=== PATIENT | male | born 1970 | race Caucasian/White ===

== ENCOUNTER 2017-06-14 06:27 | Observation (INO) | payer BC ==
[2017-06-14] MEDS ORDERED: LR 1,000 ML IV ONE (07:15)
[2017-06-14] MEDS ORDERED: BACITRACIN ZINC 14.2 GM OINTTUBE TP ONE (07:19)
[2017-06-14] MEDS ORDERED: LIDO/EPI 1% **for epidural** 30 ML SDV ONE (07:19)
[2017-06-14] MEDS ORDERED: MIDAZOLAM 2 MG/2 ML VIAL IVP ONE (07:24)
--- NOTE | 2017-06-14 07:27 | PDANEPAE ---
ANE History of Present Illness right parotid gland tumor ANE Past Medical History - Cardiovascular History Hx Hypertension: No Hx Arrhythmias: No Hx Chest Pain: No Hx Coronary Artery / Peripheral Vascular Disease: No Hx CHF / Valvular Disease: No Hx Palpitations: No - Pulmonary History Hx COPD: No Hx Asthma/Reactive Airway Disease: No Hx Recent Upper Respiratory Infection: No Hx Oxygen in Use at Home: No Hx Sleep Apnea: No Sleep Apnea Screening Result - Last Documented: Negative - Neurologic History Hx Cerebrovascular Accident: No Hx Seizures: No Hx Dementia: No - Endocrine History Hx Diabetes: No Hypothyroid: No Hyperthyroid: No Obesity: no - Renal History Hx Renal Disorders: No - Liver History Hx Hepatic Disorders: No - Neurological & Psychiatric Hx Hx Neurological and Psychiatric Disorders: No - Cancer History Hx Cancer: No - Congenital Disorder History Hx Congenital Disorders: No - GI History GERD: no Hx Gastrointestinal Disorders: No - Other Health History Other Health History: none - Chronic Pain History Chronic Pain: No - Surgical History Prior Surgeries: left acl surgery. right shoulder reconstruction. myriam ANE Review of Systems Review of systems is: negative Review of Systems: - Exercise capacity METS (RN): 4 METS ANE Patient History - Allergies Allergies/Adverse Reactions: No Known Allergies Allergy (Verified 06/14/17 07:18) - Home Medications Home medications: home medication list seen and reviewed Home Medications: Fluticasone Nasal [Flonase Nasal Dolphin (RX)] 1 sprays NASAL DAILY 05/24/17 [ Last Taken 06/13/17] - Anes Hx Anes Hx: post operative nausea and vomiting - Smoking Hx Smoking Status: Former smoker - Family Anes Hx Family Hx Anesthesia Complications: none ANE Labs/Vital Signs - Vital Signs Blood Pressure: 113/75 Heart Rate: 59 Respiratory Rate: 16 O2 Sat (%): 96 Height: 190.5 cm Weight: 85 kg ANE Physical Exam - Airway Neck exam: FROM Mallampati Score: Class 1 Mouth exam: normal dental/mouth exam - Pulmonary Pulmonary: no respiratory distress - Cardiovascular Cardiovascular: regular rate and rhythym - ASA Status ASA Status: I ANE Anesthesia Plan Anesthesia Plan: general endotracheal anesthesia Specialized Airway: video laryngoscope
[2017-06-14] MEDS ORDERED: SCOPOLAMINE HYDROBROMIDE 1 MG/3 DAYS PATCH TD SCH (07:30)
[2017-06-14] MEDS ORDERED: fentaNYL 100 MCG/2 ML INJ ONE ×2 (07:33)
[2017-06-14] MEDS ORDERED: REMIFENTANIL HCL 1 MG VIAL ONE (07:33)
[2017-06-14] MEDS ORDERED: PROPOFOL/EMULSION 500 MG/50 ML BOTTLE IV ONE (07:33)
[2017-06-14] MEDS ORDERED: PROPOFOL 200 MG/20 ML VIAL ONE ×2 (07:33→10:19)
[2017-06-14] MEDS ORDERED: LIDOCAINE 2% 5 ML SDV ONE (07:38)
[2017-06-14] MEDS ORDERED: ROCURONIUM 50 MG/5 ML VIAL ONE (07:39)
[2017-06-14] MEDS ORDERED: DEXAMETHASONE 4 MG/ML VIAL ONE ×2 (07:42→09:26)
[2017-06-14] MEDS ORDERED: ONDANSETRON 4 MG/2 ML VIAL ONE (07:43)
[2017-06-14] MEDS ORDERED: SUGAMMADEX SODIUM 200 MG/2 ML VIAL IVP ONE ×2 (07:43→08:43)
[2017-06-14] MEDS ORDERED: ceFAZolin 2 GM/SWFI 2 GM/20 ML SYR IVP ONE (07:51)
--- NOTE | 2017-06-14 07:51 | PDHPUP ---
History & Physical Update H&P update statement: This history and physical update is based on an assessment of the patient which was completed after admission or registration (within 24 hours), but prior to the surgery/procedure.
[2017-06-14] MEDS ORDERED: ceFAZolin 1 GM VIAL ONE ×2 (08:19)
[2017-06-14] MEDS ORDERED: LIDO/EPI 1% **Not for Epidural 20 ML MDV NB ONE (09:45)
[2017-06-14] MEDS ORDERED: fentaNYL 100 MCG/2 ML INJ IVP PRN (10:22)
[2017-06-14] MEDS ORDERED: ONDANSETRON 4 MG/2 ML VIAL IVP PRN (10:22)
[2017-06-14] MEDS ORDERED: ACETAMINOPHEN 500 MG TAB PO PRN (10:22)
[2017-06-14] MEDS ORDERED: HYDROCODONE/APAP 5/325 TAB PO PRN (10:22)
[2017-06-14] MEDS ORDERED: HYDROmorphONE/DILAUDID 1 MG/ML INJ IVP PRN (10:22)
[2017-06-14] MEDS ORDERED: PROMETHAZINE HCL 25 MG/ML INJ IVP PRN (10:22)
[2017-06-14] MEDS ORDERED: NALOXONE HCL 0.4 MG/ML INJ IVP PRN (10:22)
[2017-06-14] MEDS ORDERED: OXYCODONE/APAP 5/325 TAB PO PRN (10:22)
[2017-06-14] MEDS ORDERED: METOCLOPRAMIDE 10 MG/2 ML VIAL IVP PRN (10:22)
[2017-06-14] MEDS ORDERED: LR 500 ML IV PRN (10:22)
[2017-06-14] MEDS ORDERED: ALBUTEROL 3 ML DEYVIAL IH PRN (10:22)
--- NOTE | 2017-06-14 10:30 | POSTANESTH ---
Post Anesthetic Evaluation Cardiovascular Status: Normal, Stable Respiratory Status: Normal, Stable Level of Consciousness/Mental Status: Can Participate in Eval Pain Control: Adequate, Prn Tx Ordered Nausea/Vomiting Control: Adequate, Prn Tx Ordered Complications Possibly Related to Anesthesia: None Noted
[2017-06-14] MEDS ORDERED: KETOROLAC 30 MG/1 ML SDV ONE (10:31)
[2017-06-14] MEDS ORDERED: D5W 1/2 NS W/ 20 KCl/L 1,000 ML IV SCH (11:15)
--- NOTE | 2017-06-14 12:10 | GOP ---
[f rep st] OPERATIVE REPORT DATE OF OPERATION: 06/14/2017 SURGEON: Edmundo Frazier MD [employer] AGENT: Pj Rivera MD ANESTHESIA: General. PREOPERATIVE DIAGNOSIS: Right parotid tumor. POSTOPERATIVE DIAGNOSIS: Right parotid tumor. PROCEDURE PERFORMED: Right superficial parotidectomy with facial nerve dissection and preservation. FINDINGS: The tumor was located in the superficial lobe of the parotid gland overlying the facial ne rve pes. The facial nerve branches were preserved. All divisions stimulated at the end of the opera tion. SPECIMENS: Right parotid tumor. ESTIMATED BLOOD LOSS: Less than 50 mL. INDICATIONS: The patient is a 46-year-old man with a right parotid gland tumor. He presents for norberto gical resection. DESCRIPTION OF PROCEDURE: Patient was taken to the OR and positively identified, placed on monitors and general anesthesia was induced. The table was then turned slightly. He was prepped and draped i n the normal sterile fashion. Prior to this, I had set up the NIM monitor with 2 channels, tested it and then used it throughout the procedure to increase the degree of safety with regard to preservati on of the facial nerve. A modified Alonso incision was then marked out and infiltrated with 4 cc of 1 % lidocaine with 1:100,000 epinephrine. The skin was sharply incised. A skin flap was raised anteri nabeel. This was secured with stay sutures. I then located the sternocleidomastoid muscle along its a nterior border and dissected along the SCM fascia swinging superiorly and moving it anterior to the t ragus, keeping a wide plane of dissection. The dissection was carried down to the posterior belly of the digastric muscle. We then dissected superiorly along this and located the main branch of the fa cial nerve and dissected along the facial nerve, preserving it using the stimulator periodically as n eeded prior to cutting tissue to make sure it was not small facial nerve branches. The tumor was rot ated off the facial nerve. The facial vein was directly deep to the tumor itself. This was tied off above and below and divided. The mass was removed with some of this surrounding parotid tissue. The wound was irrigated with sterile saline. Hemostasis was achieved. I then stimulated the main branc h of the facial nerve at 0.3 setting of stimulating power and all branches moved. A 10-Turkish drain was placed through a separate stab incision, secured with a drain stitch. The wound was then closed with interrupted 4-0 Vicryl, 4-0 Monocryl, followed by 5-0 fast-absorbing gut and then 5-0 Prolene. This was followed by a pressure dressing and the case was terminated. The anesthetic discontinued. The patient tolerated the procedure well. COMPLICATIONS: None. /[id number]/MODL
[2017-06-14 14:27] VITALS: RESP 12; TEMP 98.1
[2017-06-14 15:02] VITALS: BP 116/56; PULSE 65; O2SAT 94
--- NOTE | 2017-06-14 17:15 | SOAPPROG ---
SOAP Progress Note Assessment/Plan: Assessment: S/p right superficial parotidectomy with facial nerve dissection/ preservation. Doing well. Facial nerve intact. He will go home this evening. Prescription given for keflex. Follow-up tomorrow with Dr. Frazier to have drain removed. - He will come in tomorrow at 9:30 at our [place] location with Dr. Frazier 06/14/17 17:13 Subjective: S/p right superficial parotidectomy. Doing well. Pain under control. Objective: Vital Signs Temp Pulse Resp BP Pulse Ox 36.7 C 65 12 116/56 L 94 06/14/17 14:53 06/14/17 14:53 06/14/17 14:53 06/14/17 14:53 06/14/17 14:53 06/13/17 06/14/17 06/15/17 05:59 05:59 05:59 Output Total 5 Balance -5 Facial nerve intact OP normal Voice strong, no stridor Dressing intact Minimal drain output ICD10 Worksheet Patient Problems: Problems Problem Status Onset H/O parotidectomy Acute - ICD10 Problem Qualifiers (1) H/O parotidectomy
[2017-06-15] MEDS ORDERED: PATCH REMOVAL 1 EA PATCH TD ONE (07:24)
== END 2017-06-14 17:40 | disposition home or self-care (01) ==
LOC: F3N 06:27 → F3E 11:50
PROVIDERS: ADMIT Otolaryngology; ATTEND Otolaryngology
PROC: 0CB80ZZ Excision of Right Parotid Gland, Open Approach (ICD-10-PCS; principal; 2017-06-14 07:45)
DX: D11.0 Benign neoplasm of parotid gland (principal)
CPT/HCPCS: 42415; G0378; J0690; J1100; J1885; J2250; J2405; J2704; J3010